=== PATIENT | male | born 1945 | race Caucasian/White ===

== ENCOUNTER 2017-07-06 06:34 | Inpatient (IN) | payer MEDICARE ==
[~2017-07-06] VITALS: Ht 175.3 cm; Wt 92.4 kg
[~2017-07-06 06:34] MED LIST: ASPI-621 PO; CARV80CP PO; CELE200C PO; CENTRUM SILVER 50+ PO; CETI-158 PO; DAPA10TA PO; DULO30CA2 PO; EZET10TA18 PO; FURO20TA3 PO; LACT1CAP40 PO; LIRA0.6P2 SC; METF10002 PO; MILK87.5 PO; MONT10TA9 PO; PERI4TAB2 PO; PIOG15TA4 PO; POTA8TAB6 PO; VERA100C2 PO
[2017-07-06] MEDS ORDERED: EPINEPHRINE 1 MG/ML, 1ML ONE (06:49)
[2017-07-06] MEDS ORDERED: BUPIVACAINE/PF 0.5% ONE (06:49)
[2017-07-06] MEDS ORDERED: THROMBIN 5,000 UNIT VIAL TP ONE (06:50)
[2017-07-06] MEDS ORDERED: BACITRACIN 50,000 UNIT ONE (06:50)
[2017-07-06 07:41] VITALS: BP 132/83
[2017-07-06] MEDS ORDERED: LACTATED RINGERS 1,000 ML IV SCH (07:47)
[2017-07-06] MEDS ORDERED: FENTANYL PF 100 MCG/2ML ONE ×2 (07:55→08:55)
[2017-07-06] MEDS ORDERED: HYDROmorphone 1 MG/ML, 1ML ONE (07:55)
[2017-07-06] MEDS ORDERED: MIDAZOLAM 1 MG/ML, 2ML ONE (07:55)
[2017-07-06] MEDS ORDERED: LIDOCAINE 1%, 2ML SQ PRN (08:00)
[2017-07-06] MEDS ORDERED: SUCCINYLCHOLINE 20 MG/ML, 10ML ONE (08:56)
[2017-07-06] MEDS ORDERED: DEXAMETHASONE 4 MG/ML, 1ML ONE (08:56)
[2017-07-06] MEDS ORDERED: ROCURONIUM 10 MG/ML ONE (08:56)
[2017-07-06] MEDS ORDERED: CEFAZOLIN 1,000 MG ONE (08:56)
[2017-07-06] MEDS ORDERED: ETOMIDATE 20 MG/10 ML ONE (08:56)
[2017-07-06] MEDS ORDERED: BUPIVACAINE/PF-EPI 0.5% 1:200K IM ONE (09:10)
[2017-07-06] MEDS ORDERED: FENTANYL PF 100 MCG/2ML IV PRN (11:00)
[2017-07-06] MEDS ORDERED: OXYcodone 5 MG/5 ML ORAL.SOL UDC PO PRN (11:00)
[2017-07-06] MEDS ORDERED: ONDANSETRON 2MG/ML, 2ML IVPush PRN (11:00)
[2017-07-06] MEDS ORDERED: ACETAMINOPHEN 325 MG TABLET PO PRN (11:00)
[2017-07-06] MEDS ORDERED: HYDROmorphone 1 MG/ML, 1ML IV PRN (11:00)
[2017-07-06] MEDS ORDERED: HYDROmorphone PCA 30 MG/30 ML ONE (11:31)
[2017-07-06] MEDS ORDERED: HYDROmorphone PCA 30 MG/30 ML IV PRN ×2 (12:00→13:00)
[2017-07-06] MEDS ORDERED: HYDROcodone/APAP 5/325 TABLET PO PRN (13:00)
[2017-07-06] MEDS ORDERED: DIPHENHYDRAMINE 50 MG/ML, 1ML IM PRN (13:00)
[2017-07-06] MEDS ORDERED: DIPHENHYDRAMINE 50 MG CAPSULE PO PRN (13:00)
[2017-07-06] MEDS ORDERED: BISACODYL 10 MG SUPP PR PRN (13:00)
[2017-07-06] MEDS ORDERED: MAGNESIUM HYDROXIDE 8%, 30ML UDC PO PRN (13:00)
[2017-07-06] MEDS ORDERED: DIPHENHYDRAMINE 50 MG/ML, 1ML IVPush PRN (13:00)
[2017-07-06] MEDS ORDERED: PROMETHAZINE 25 MG/ML, 1ML IM PRN (13:00)
[2017-07-06] MEDS ORDERED: HYDROmorphone 2 MG/ML, 1ML IM PRN (13:00)
[2017-07-06] MEDS ORDERED: METHOCARBAMOL 750 MG TABLET PO PRN (13:00)
[2017-07-06] MEDS ORDERED: ONDANSETRON 2MG/ML, 2ML IV PRN (13:00)
[2017-07-06] MEDS ORDERED: HYDROmorphone 2MG TABLET PO PRN (13:00)
[2017-07-06] MEDS ORDERED: [UNRECOGNIZED DRUG - REMARK] MC SCH (13:30)
[2017-07-06] MEDS: NS + 20MEQ KCL 1,000 ML IV SCH (13:42)
[2017-07-06] MEDS: CEFAZOLIN PMX 1GM/50ML 50 ML IVPB SCH (17:03)
[2017-07-06] MEDS: CARVEDILOL 25 MG TABLET PO SCH (17:04)
[2017-07-06] MEDS: metFORMIN 500 MG TABLET PO SCH (17:04)
[2017-07-06] MEDS: LACTOBACILLUS CHEW TABLET PO SCH (17:04)
[2017-07-06 19:08] VITALS: BP 145/72
[2017-07-06] MEDS: PERINDOPRIL HOMEMEDPO SCH (20:41)
[2017-07-06] MEDS ORDERED: ZOLPIDEM 5MG TABLET PO PRN (21:00)
[2017-07-06] MEDS ORDERED: CETIRIZINE 10 MG TABLET PO SCH (21:00)
[2017-07-06] MEDS ORDERED: EZETIMIBE 10 MG TABLET PO SCH (21:00)
[2017-07-06] MEDS ORDERED: MONTELUKAST 10 MG TABLET PO SCH (21:00)
[2017-07-06] MEDS ORDERED: VERAPAMIL 80MG TABLET PO SCH (21:00)
[2017-07-06 23:25] VITALS: BP 145/83
[2017-07-07] MEDS: CEFAZOLIN PMX 1GM/50ML 50 ML IVPB SCH (01:21)
[2017-07-07] MEDS: NS + 20MEQ KCL 1,000 ML IV SCH (01:30)
[2017-07-07 03:50] VITALS: BP 119/73
[2017-07-07] MEDS: CARVEDILOL 25 MG TABLET PO SCH (05:10)
[2017-07-07] MEDS: OXYcodone/APAP 5/325MG TABLET PO PRN ×2 (05:14→09:38)
[2017-07-07 07:53] VITALS: BP 109/68
[2017-07-07] MEDS: LACTOBACILLUS CHEW TABLET PO SCH (08:35)
[2017-07-07] MEDS: metFORMIN 500 MG TABLET PO SCH (08:35)
[2017-07-07] MEDS: PERINDOPRIL HOMEMEDPO SCH (08:36)
[2017-07-07] MEDS ORDERED: SENNA/DOCUSATE TABLET PO SCH ×2 (09:00)
[2017-07-07] MEDS ORDERED: FARXIGA HOMEMEDPO SCH (09:00)
[2017-07-07] MEDS ORDERED: MULTIVITAMIN 1 TABLET PO SCH (09:00)
[2017-07-07] MEDS ORDERED: PIOGLITAZONE 15 MG TABLET PO SCH (09:00)
[2017-07-07] MEDS ORDERED: VICTOZA SQ SCH (09:00)
[2017-07-07] MEDS ORDERED: FUROSEMIDE 20 MG TABLET PO SCH (09:00)
[2017-07-07] MEDS ORDERED: POTASSIUM CHLORIDE 8 MEQ TABLET.ER PO SCH (09:00)
[2017-07-07] MEDS ORDERED: DULOXETINE 30 MG CAPSULE.DR PO SCH (09:00)
[2017-07-07 11:30] VITALS: BP 140/70
== END 2017-07-07 12:20 | disposition home or self-care (01) | DRG 519 ==
LOC: OUT 06:34 → 4NOR 11:41 → OUT 12:51 → DCLOUNGE 07-07 12:00
PROVIDERS: ADMIT Neurological Surgery; ATTEND Neurological Surgery
PROC: 0SB20ZZ Excision of Lumbar Vertebral Disc, Open Approach (ICD-10-PCS; 2017-07-06)
PROC: 01NR0ZZ Release Sacral Nerve, Open Approach (ICD-10-PCS; 2017-07-06)
PROC: 01NB0ZZ Release Lumbar Nerve, Open Approach (ICD-10-PCS; principal; 2017-07-06 09:30)
DX: M48.06 Spinal stenosis, lumbar region (principal); E44.1 Mild protein-calorie malnutrition; M47.26 Other spondylosis with radiculopathy, lumbar region; Z88.8 Allergy status to other drugs, medicaments and biological substances; Z91.012 Allergy to eggs; Z91.013 Allergy to seafood
CPT/HCPCS: 72100; 82962; J0171; J0690; J1100; J1170; J2250; J2405; J3010; J3480; J3490; J0330

== ENCOUNTER → 2018-02-05 | Outpatient (CLI) | payer MEDICARE ==
[~2018-02-05] MED LIST changes: +CHOL500045 PO; +MILK THISTLE PO; +MULT-717 PO; +TAUR500C PO; +[UNRECOGNIZED DRUG - OTHER] PO
[2018-02-05 09:06] LABS: BASOPHILS # (AUTO) 0.07 x10^3/uL (0-0.1); BASOPHILS % (AUTO) 1 % (0-1); EOSINOPHILS # (AUTO) 0.18 x10^3/uL (0-0.4); EOSINOPHILS % (AUTO) 3 % (1-7); LYMPHOCYTES # (AUTO) 1.34 x10^3/uL (1-3.4); LYMPHOCYTES % (AUTO) 22 % (22-44); MD NO; MEAN CORPUSCULAR HEMOGLOBIN 30.7 pg (27.5-34.5); MEAN CORPUSCULAR HGB CONC 33.5 g/dL (33.2-36.2); MEAN CORPUSCULAR VOLUME 91.7 fL (81-97); MONOCYTES % (AUTO) 10 % (2-9); NEUTROPHILS # (AUTO) 4.02 x10^3/uL (1.8-6.8); NEUTROPHILS % (AUTO) 65 % (42-75); PLATELET COUNT 242 x10^3/uL (130-400); RED BLOOD COUNT 4.58 x10^6/uL (4.38-5.82); RED CELL DISTRIBUTION WIDTH 13.2 % (9.4-14.8)
[2018-02-05 09:15] LABS: INTERNATIONAL NORMALIZED RATIO 0.88 (0.93-1.1); PROTHROMBIN TIME 9.1 Seconds (9.6-11.5)
[2018-02-05 09:20] LABS: ALANINE AMINOTRANSFERASE 38 U/L (12-78); ANION GAP 6 mmol/L (5-15); CALCIUM 8.8 mg/dL (8.5-10.1); CHLORIDE 108 mmol/L (98-107); CREATININE 0.91 mg/dL (0.7-1.3)
[2018-02-05 09:22] LABS: ALKALINE PHOSPHATASE 59 U/L (45-117); BILIRUBIN,TOTAL 0.5 mg/dL (0.2-1.0); TOTAL PROTEIN 7.5 g/dL (6.4-8.2)
== END | disposition home or self-care (01) ==
LOC: STAR 08:13
PROVIDERS: ATTEND Neurological Surgery
DX: Z01.818 Encounter for other preprocedural examination (principal); M48.02 Spinal stenosis, cervical region
CPT/HCPCS: 36415; 71046; 80053; 85025; 85610; 85730; 93005